=== PATIENT | male | born 1965 | race African-American/Black ===

== ENCOUNTER 2016-05-06 19:22 | Emergency (ER) | payer MEDICARE ==
[~2016-05-06 19:22] MED LIST: CYCL-36 PO; NAPR500 PO
[2016-05-06 19:24] VITALS: BP 177/100; PULSE 85; RESP 14; TEMP 97.6; O2SAT 99
[2016-05-06] MEDS ORDERED: NAPROXEN 500 MG TAB PO ONE (20:45)
--- NOTE | 2016-05-06 20:48 | PD ---
HPI Chief Complaint: Fall Time Seen by Provider: 20:45 Travel History International Travel<30 days: No Contact w/Intl Traveler<30days: No Traveled to known affect area: No History of Present Illness HPI Patient comes in complaining of right shoulder and elbow pain after slip and fall in the shower. Patient denies hitting his head, hitting his neck, or loss of consciousness. Patient describes pain as burning like in nature and is radiating into his neck. Patient denies any numbness or tingling anywhere, being on any blood thinners, nausea, vomiting, or doing anything for this prior coming to the emergency department. Pain is worse to palpation and with certain movement. PFSH Past Medical History Medical History: Denies Significant Hx Hx Anticoagulant Therapy: No Cardiovascular Problems: No Chemotherapy: No Cerebrovascular Accident: No Diabetes: No Diminished Hearing: No Respiratory: No Tetanus Vaccination: < 5 Years Influenza Vaccination: No Past Surgical History Surgical History: No Previous Surgery Social History Alcohol Use: No Tobacco Use: Yes Substance Use: No Allergies-Medications (Allergen,Severity, Reaction): Coded Allergies: No Known Allergies (Unverified , 05/06/16) Reported Meds & Prescriptions Reported Meds & Active Scripts Active Naprosyn (Naproxen) 500 Mg Tab 500 Mg PO Q12HR PRN Review of Systems Except as stated in HPI: all other systems reviewed are Neg Physical Exam Narrative GENERAL: Well-developed, overly nourished, in no acute distress, and non-ill appearing. SKIN: Warm and dry. HEAD: Atraumatic. Normocephalic. EYES: Pupils equal and round. EOMI. No scleral icterus. No injection or drainage. ENT: No nasal bleeding or discharge. Mucous membranes pink and moist. NECK: Trachea midline. Supple. No nuclear rigidity. No tenderness or crepitus or midline of cervical spine. Patient reports tenderness to palpation over right trapezius laterally. CARDIOVASCULAR: Radial pulses 2+, nontender, and equal bilaterally. Capillary refill less than 2 seconds. RESPIRATORY: No accessory muscle use. No respiratory distress. MUSCULOSKELETAL: No obvious deformities. No clubbing. No cyanosis. No edema. Full range of motion. Shoulder:FROM equal BL with passive flexion, extension, Abduction, Adduction, internal/external rotation, and pronation/supination. Sensation equal BL deltoid muscles. Pulses equal BL distal to injury. Capillary refill less than 2 seconds distal to injury and equal BL. FROM distal to injury and equal BL. Strength distal to injury equal BL. NV intact distal to injury equal BL. Flexion and extension of thumb equal BL. Equal strength and movement with abduction/adductions of BL fingers. High School Admissions Representative strength equal BL. Elbow : FROM and strength equal BL with passive flexion, extension, and pronation/supination. No laxity noted with varus and valgus maneuvers. Pulses equal BL distal to injury. Capillary refill less than 2 seconds distal to injury and equal BL. FROM distal to injury and equal BL. Strength distal to injury equal BL. NV intact distal to injury and equal BL. Flexion and extension of thumb equal BL. Equal strength and movement with abduction/ adductions of BL fingers. High School Admissions Representative strength equal BL. Patient reports tenderness to palpation over right posterior elbow. NEUROLOGICAL: Awake and alert. No obvious cranial nerve deficits. Motor grossly within normal limits. Normal speech. PSYCHIATRIC: Appropriate mood and affect; insight and judgment normal. Data Data Last Documented VS Vital Signs Date Time Temp Pulse Resp B/P Pulse Ox O2 Delivery O2 Flow Rate FiO2 05/06/16 20:38 16 05/06/16 19:24 97.6 85 177/100 99 Room Air Orders Elbow, Complete (4 Vws) (05/06/16 ) Shoulder, Complete (>2vws) (05/06/16 ) Naproxen (Naprosyn) (05/06/16 20:45) Ice/Cold Pack (05/06/16 20:45) Splint Or Brace Apply/Monitor (05/06/16 21:43) MDM Medical Decision Making Medical Screen Exam Complete: Yes Emergency Medical Condition: Yes Differential Diagnosis Fracture, strain, contusion, other Narrative Course The patient appears to have suffered a contusion of the elbow. There is no clinical evidence to suspect bony injury by exam. Radiographic examination revealed no fracture seen at this time. The patient has full range of motion on active and passive motions. There is no significant edema. There is no proximal or distal joint effusion. The distal extremity appears neurovascularly intact, without evidence of neurovascular injury nor compartment syndrome. Tendon exam also was intact. The patient was discharged on pain medication instructions and given warnings for vascular compromise. The patient is to follow up with their regular physician or Orthopedics. The patient agrees with plan. Patient appears to suffered a sprain of the right shoulder. There is no clinical evidence for fracture. There is no clinical evidence to suspect bony injury by exam. Radiographic examination revealed no fracture seen at this time. No obvious ligamental injury or internal derangement is noted at this time. The distal extremity appears neurovascularly intact, without evidence of neurovascular injury nor compartment syndrome. Tendon exam also was intact. The patient was discharged on pain medication along with sprain care instructions and given warnings for vascular compromise. The patient is to follow up with Orthopedics. The patient agrees with plan. Patient in no obvious distress upon re-evaluation. All pertinent Radiology result(s) discussed with patient/family. Patient was asked if they wanted to speak to my attending, which the patient did not wish to do at this time. Any questions/concerns in reference to patient diagnosis/condition discussed and clarified prior to patient's discharge. Reinforced sheer importance of close follow up with patient's primary physician or primary care clinic and/or orthopedics. Instructed patient to return to ED immediately, if symptoms return/ worsen. Pt showed understanding of above instructions. Further instructions and recommendations were detailed in discharge paperwork. Pt ambulated without difficulty out of ED at discharge. Diagnosis Primary Impression: Contusion of right elbow, initial encounter Additional Impression: Other sprain of right shoulder joint, initial encounter Referrals: Keagan Jenkins MD Patient Instructions: Contusion in Adults (ED), General Instructions, Shoulder Sprain (ED), Splint Care (ED) Additional Instructions: Follow-up with your primary care physician and/or orthopedics in 3-5 days for reevaluation. Take all medication as prescribed. Wear Good wrap as needed for comfort. Apply ice to affected area 20 minutes per hour as needed for pain. Return to the emergency department if symptoms get worse. Med/Other Pt SpecificInfo: Prescription(s) given Scripts Naproxen (Naprosyn)500 Mg Vhg500 Mg PO Q12HR PRN (PAIN SCALE 1 TO 10) #14 TAB Ref 0 Prov:Gypsy Donnelly MD 05/06/16 Disposition: 01 DISCHARGE HOME Condition: Stable Tayo Herrera May 06, 2016 20:48
--- NOTE | 2016-05-06 21:24 | RADRPT ---
EXAM DATE/TIME: 05/06/2016 21:15 [facility] COMPARISON: No previous studies available for comparison. INDICATIONS : Patient fell in shower and complains of right elbow pain. MEDICAL HISTORY : None. SURGICAL HISTORY : None. ENCOUNTER: Initial ACUITY: 1 day PAIN SCORE: 7/10 LOCATION: Right Elbow FINDINGS: Multiple view examination of the right elbow demonstrates soft tissue swelling without joint effusion , or fracture. The osseous structures are in normal alignment. Spurring posteriorly. Bony mineraliza tion is normal. CONCLUSION: Soft tissue swelling. Cristóbal Anderson MD on May 06, 2016 at 21:21 Board Certified Radiologist. This report was verified electronically.
--- NOTE | 2016-05-06 21:25 | RADRPT ---
EXAM DATE/TIME: 05/06/2016 21:06 [facility] COMPARISON: No previous studies available for comparison. INDICATIONS : Patient fell in shower and complains of right shoulder pain. MEDICAL HISTORY : None. SURGICAL HISTORY : None. ENCOUNTER: Initial ACUITY: 1 day PAIN SCORE: 7/10 LOCATION: Right Shoulder FINDINGS: Multiple view examination of the right shoulder demonstrates no evidence of fracture or dislocation. The glenohumeral and acromioclavicular joints are maintained. There is normal range of motion betwe en internal and external rotation. Bony mineralization is normal. CONCLUSION: No acute fracture. Cristóbal Anderson MD on May 06, 2016 at 21:23 Board Certified Radiologist. This report was verified electronically.
[2016-05-06] MEDS ORDERED: NAPR500 PO (21:46)
== END 2016-05-06 22:07 | disposition home or self-care (01) ==
LOC: NEPB 19:22
DX: S50.01XA Contusion of right elbow, initial encounter (principal); S43.401A Unspecified sprain of right shoulder joint, initial encounter; W18.2XXA Fall in (into) shower or empty bathtub, initial encounter; Y93.E1 Activity, personal bathing and showering; Y92.002 Bathroom of unspecified non-institutional (private) residence as the place of occurrence of the external cause; Z72.0 Tobacco use
CPT/HCPCS: 73030; 73080; 99283

== ENCOUNTER 2016-07-08 21:50 | Emergency (ER) | payer MEDICARE, MEDICAID ==
[~2016-07-08 21:50] MED LIST changes: -CYCL-36 PO
[2016-07-08 21:52] VITALS: BP 186/97; PULSE 97; RESP 14; TEMP 97.8; O2SAT 98
--- NOTE | 2016-07-08 22:37 | PD ---
HPI Chief Complaint: Injury Time Seen by Provider: 22:34 Travel History International Travel<30 days: No Contact w/Intl Traveler<30days: No Traveled to known affect area: No History of Present Illness HPI 51-year-old black male vision impaired presents emergency Department with complaints of right foot pain. He states that he had jammed his right big toe into a door jam of the bathroom this morning. He did not feel significant discomfort initially. He did go to work today. He states that he had laid down this evening and when he went to stand up he was unable to bear airway. He complains of pain across the forefoot into the big toe. He denies any numbness, tingling or weakness. He is requesting a shot for pain PFS Past Medical History Narrative Medical Vision impaired etiology unclear Hx Anticoagulant Therapy: No Cardiovascular Problems: No Chemotherapy: No Cerebrovascular Accident: No Diabetes: No Diminished Hearing: No Respiratory: No Tetanus Vaccination: < 5 Years Past Surgical History Surgical History: No Previous Surgery Social History Alcohol Use: No Tobacco Use: Yes Substance Use: No Allergies-Medications (Allergen,Severity, Reaction): Coded Allergies: No Known Allergies (Unverified , 07/08/16) Reported Meds & Prescriptions Reported Meds & Active Scripts Active Diclofenac Sodium DR (Diclofenac Sodium) 50 Mg Tabdr 50 Mg PO TID Naprosyn (Naproxen) 500 Mg Tab 500 Mg PO Q12HR PRN Review of Systems Except as stated in HPI: all other systems reviewed are Neg Physical Exam Narrative GENERAL: This is a well-nourished, well-developed patient, in no apparent distress. SKIN: No rashes, ecchymoses or lesions. Warm and dry. HEAD: Atraumatic. Normocephalic. EYES: Disconjugate gaze, wandering eyes, no discharge or injection. No scleral icterus. EARS: Clear NOSE: Nasal turbinates appear normal. THROAT: Mucosa pink and moist. Airway patent. NECK: Trachea midline. supple, moves head freely. LUNGS: Clear to auscultation. CV: Regular in rhythm. ABDOMEN: Soft nontender. EXT: No clubbing cyanosis or edema. Examination the right lower extremity reveals pain across the forefoot into the great toe. The skin is intact. There is no skin breakdown. No erythema or ecchymosis. He has intact sensation with good Refill. He has good distal pulses. He complains of pain with weightbearing. No pain in the heel, Achilles, knee or hip. The remaining extremities are unremarkable. Data Data Last Documented VS Vital Signs Date Time Temp Pulse Resp B/P Pulse Ox O2 Delivery O2 Flow Rate FiO2 07/08/16 22:46 Room Air 07/08/16 21:52 97.8 97 14 186/97 98 Orders Foot, Complete ([id number]) (07/08/16 22:33) Ice/Cold Pack (07/08/16 22:33) Splint Or Brace Apply/Monitor (07/08/16 22:33) Crutches (07/08/16 22:33) Ketorolac Inj (Toradol Inj) (07/08/16 22:45) Acetamin-Hydrocod 325-5 Mg ([place] 5-325 (07/08/16 22:45) MDM Medical Decision Making Medical Screen Exam Complete: Yes Emergency Medical Condition: Yes Medical Record Reviewed: Yes Interpretation(s) Right foot: Negative for acute fracture. Differential Diagnosis MDM: High Differential diagnoses: Fracture, sprain, strain, dislocation, contusion, neurovascular injury Narrative Course X-ray of the right foot is negative for trauma. Patient's given Toradol 60 mg IM and Lortab 5 mg by mouth. Icepack, came walker, crutches. This is right foot contusion Diagnosis Primary Impression: Contusion of right foot, initial encounter Patient Instructions: General Instructions, Narcotic given in the ED Departure Forms: Tests/Procedures, Work Release Special Instructions: No work 3 days. Additional Instructions: Rest. Elevation. Ice packs for the next 3 days. Cam Walker and crutches. No weight-bearing and then progress to weight-bearing as tolerated. Medications as directed Follow-up with an orthopedist or your doctor in one week. Return to the ER if any problems Med/Other Pt SpecificInfo: Prescription(s) given Scripts Diclofenac Sodium DR 50 Mg Tabdr50 Mg PO TID #30 TAB Prov:Evelyn Haq MD 07/08/16 Disposition: 01 DISCHARGE HOME Condition: Stable Antwon Horne July 08, 2016 22:37
[2016-07-08] MEDS ORDERED: DICL50TA3 PO (22:38)
[2016-07-08] MEDS ORDERED: KETOROLAC TROMETHAMINE 60 MG/2 ML (IM) VIAL IM ONE (22:45)
[2016-07-08] MEDS ORDERED: ACETAMINOPHEN/HYDROcodone 325 MG/5 MG TAB PO ONE (22:45)
--- NOTE | 2016-07-08 23:08 | RADRPT ---
EXAM DATE/TIME: 07/08/2016 22:56 [facility] COMPARISON: No previous studies available for comparison. INDICATIONS : Right foot pain. MEDICAL HISTORY : None. SURGICAL HISTORY : None. ENCOUNTER: Initial ACUITY: 1 day PAIN SCORE: 10/10 LOCATION: Right foot FINDINGS: Three view examination of the right foot demonstrates no soft tissue swelling, dislocation, or fractu re. The tarsal bones appear intact. The interphalangeal and metatarsophalangeal joints are intact. The calcaneus is intact. Bony mineralization is normal. CONCLUSION: Unremarkable examination of the right foot. Benito Morton Jr., MD on July 08, 2016 at 23:06 Board Certified Radiologist. This report was verified electronically.
== END 2016-07-08 23:50 | disposition home or self-care (01) ==
LOC: NEPK 21:50
DX: S90.31XA Contusion of right foot, initial encounter (principal); W22.09XA Striking against other stationary object, initial encounter; Y92.002 Bathroom of unspecified non-institutional (private) residence as the place of occurrence of the external cause
CPT/HCPCS: 73630; 96372; 99283; E0113; J1885; L2114

== ENCOUNTER 2016-11-26 20:34 | Emergency (ER) | payer MEDICAID, MEDICARE ==
[~2016-11-26] VITALS: Ht 172.7 cm; Wt 115.0 kg
[~2016-11-26 20:34] MED LIST changes: +DICL50TA3 PO
[2016-11-26 20:35] VITALS: BP 142/95; PULSE 77; RESP 15; TEMP 98.7; O2SAT 98
[2016-11-26] MEDS ORDERED: KETOROLAC TROMETHAMINE 60 MG/2 ML (IM) VIAL IM ONE (23:15)
--- NOTE | 2016-11-26 23:22 | RADRPT ---
EXAM DATE/TIME: 11/26/2016 22:58 [facility] COMPARISON: No previous studies available for comparison. INDICATIONS : Pt fell and hit right ankle against cabinet. MEDICAL HISTORY : None. SURGICAL HISTORY : None. ENCOUNTER: Initial ACUITY: 1 day PAIN SCORE: 6/10 LOCATION: Right ankle FINDINGS: Three view exam was performed of the right ankle. The bony structures are in normal alignment. No e vidence of fracture, dislocation. Soft tissue swelling over the lateral malleolus. The ankle mortise is intact. No radiopaque foreign bodies are seen. Bony mineralization is normal. CONCLUSION: 1. Soft tissue swelling at the right ankle. No acute fracture. Antwon العلي MD on November 26, 2016 at 23:20 Board Certified Radiologist. This report was verified electronically.
--- NOTE | 2016-11-26 23:24 | RADRPT ---
EXAM DATE/TIME: 11/26/2016 23:03 [facility] COMPARISON: No previous studies available for comparison. INDICATIONS : Pt fell and hit right knee against cabinet. MEDICAL HISTORY : None. SURGICAL HISTORY : None. ENCOUNTER: Initial ACUITY: 1 day PAIN SCORE: 6/10 LOCATION: Right Knee FINDINGS: Four view examination of the right knee demonstrates no evidence of fracture or dislocation. Bony mi neralization is normal. The articular surfaces are intact. The suprapatellar soft tissues have a no rmal configuration. CONCLUSION: 1. No acute findings. Mild osteoarthritis. Antwon العلي MD on November 26, 2016 at 23:21 Board Certified Radiologist. This report was verified electronically.
--- NOTE | 2016-11-27 00:03 | PD ---
HPI Chief Complaint: Injury Time Seen by Provider: 23:13 Travel History International Travel<30 days: No Contact w/Intl Traveler<30days: No Traveled to known affect area: No History of Present Illness HPI WHILE WALKING ACCIDENTALLY HIT HIS RIGHT KNEE INTO PIECE OF FURNITURE WHICH CAUSED HIM TO FALL, AND HE TWISTED HIS RIGHT ANKLE...NOW C/O RT KNEE AND ANKLE PAIN, NONRAD, 09/07 PFSH Past Medical History Hx Anticoagulant Therapy: No Cardiovascular Problems: No Chemotherapy: No Cerebrovascular Accident: No Diabetes: No Diminished Hearing: No Respiratory: No Immunizations Current: No Social History Alcohol Use: No Tobacco Use: Yes Substance Use: No Allergies-Medications (Allergen,Severity, Reaction): Coded Allergies: No Known Allergies (Unverified , 11/26/16) Reported Meds & Prescriptions Reported Meds & Active Scripts Active Baclofen 10 Mg Tab 10 Mg PO Q8HR PRN Ultram (Tramadol HCl) 50 Mg Tab 50 Mg PO Q4H PRN Diclofenac Sodium DR (Diclofenac Sodium) 50 Mg Tabdr 50 Mg PO TID Naprosyn (Naproxen) 500 Mg Tab 500 Mg PO Q12HR PRN Review of Systems Except as stated in HPI: all other systems reviewed are Neg Musculoskeletal: Positive: Limited ROM, Pain Physical Exam Narrative GENERAL: SKIN: Warm and dry. HEAD: Atraumatic. Normocephalic. EYES: Pupils equal and round. No scleral icterus. No injection or drainage. ENT: No nasal bleeding or discharge. Mucous membranes pink and moist. NECK: Trachea midline. No JVD. CARDIOVASCULAR: Regular rate and rhythm. RESPIRATORY: No accessory muscle use. Clear to auscultation. Breath sounds equal bilaterally. GASTROINTESTINAL: Abdomen soft, non-tender, nondistended. MUSCULOSKELETAL: Extremities without clubbing, cyanosis, or edema. No obvious deformities. BUT TTP ALONG RIGHT LATERAL ANKLE NEUROLOGICAL: Awake and alert. No obvious cranial nerve deficits. Motor grossly within normal limits. Five out of 5 muscle strength in the arms and legs. Normal speech. PSYCHIATRIC: Appropriate mood and affect; insight and judgment normal. Data Data Last Documented VS Vital Signs Date Time Temp Pulse Resp B/P (MAP) Pulse Ox O2 Delivery O2 Flow Rate FiO2 11/27/16 00:46 11/26/16 20:35 98.7 77 15 98 Room Air Orders Orders Ankle, Complete ([id number]) (11/26/16 ) Knee, Complete (4vws) (11/26/16 ) Ice/Cold Pack (11/26/16 22:44) Ketorolac Inj (Toradol Inj) (11/26/16 23:15) MDM Medical Decision Making Medical Screen Exam Complete: Yes Emergency Medical Condition: Yes Medical Record Reviewed: Yes Differential Diagnosis ANKLE SPRAIN V FX V DISLOCATION Narrative Course XRAYS DID NOT SHOW ANY FX OR DISLOCATION NOTED AND PATIENT STABLE..., WILL D/C ON PAIN MEDICATION Diagnosis Primary Impression: RIGHT ANKLE SPRAIN Additional Impression: RIGHT KNEE CONTUSI Patient Instructions: Ankle Sprain (ED), Contusion in Adults (DC), General Instructions Scripts Baclofen (Baclofen) 10 Mg Tab 10 MG PO Q8HR Y for MUSCLE SPASM, #10 TAB 0 Refills Prov: David Dorado MD 11/27/16 Tramadol (Ultram) 50 Mg Tab 50 MG PO Q4H Y for PAIN, #15 TAB 0 Refills Prov: David Dorado MD 11/27/16 Disposition: 01 DISCHARGE HOME Condition: Stable David Dorado MD Nov 27, 2016 00:03
[2016-11-27] MEDS ORDERED: ULTR50TA5 PO (00:40)
[2016-11-27] MEDS ORDERED: BACL10TA PO (00:40)
== END 2016-11-27 01:01 | disposition home or self-care (01) ==
LOC: NEPE 20:34
DX: S93.401A Sprain of unspecified ligament of right ankle, initial encounter (principal); W18.09XA Striking against other object with subsequent fall, initial encounter; Y93.01 Activity, walking, marching and hiking; Y92.009 Unspecified place in unspecified non-institutional (private) residence as the place of occurrence of the external cause; Z72.0 Tobacco use
CPT/HCPCS: 73564; 73610; 96372; 99284; J1885

== ENCOUNTER 2017-05-28 01:12 | Emergency (ER) | payer MEDICARE ==
[~2017-05-28] VITALS: Ht 172.7 cm; Wt 104.5 kg
[~2017-05-28 01:12] MED LIST changes: +BACL10TA PO; +TRAM50 PO
[2017-05-28 01:17] VITALS: BP 171/93; PULSE 75; RESP 16; TEMP 98.4; O2SAT 99
[2017-05-28 01:31] VITALS: BP 159/100; PULSE 74; RESP 18; O2SAT 100
[2017-05-28] MEDS ORDERED: KETOROLAC TROMETHAMINE 60 MG/2 ML (IM) VIAL IM ONE (02:15)
[2017-05-28] MEDS ORDERED: ACETAMINOPHEN/HYDROcodone 325 MG/5 MG TAB PO ONE (02:15)
--- NOTE | 2017-05-28 02:18 | PD ---
HPI Chief Complaint: Injury Time Seen by Provider: 01:24 Travel History International Travel<30 days: No Contact w/Intl Traveler<30days: No Traveled to known affect area: No History of Present Illness HPI Patient is a 51-year-old male who said he was cooking fried chicken his house and grease spilled and he jumped backwards to avoid getting splattered and he slipped and fell and twisted his R ankle and landed on his sacrum and lumbar spine area. He comes in complaining of lateral R ankle pain and lower back pain. Patient is legally blind. Patient says he is having difficulty ambulating due to the pain PFSH Past Medical History Hx Anticoagulant Therapy: No Cardiovascular Problems: No Chemotherapy: No Cerebrovascular Accident: No Diabetes: No Diminished Hearing: No Respiratory: No Immunizations Current: No Tetanus Vaccination: < 5 Years Influenza Vaccination: Yes Social History Alcohol Use: Yes (rarely) Tobacco Use: No Substance Use: No Allergies-Medications (Allergen,Severity, Reaction): Coded Allergies: No Known Allergies (Unverified , 11/26/16) Reported Meds & Prescriptions Reported Meds & Active Scripts Active Tramadol (Tramadol HCl) 50 Mg Tab 50 Mg PO Q6H PRN Ibuprofen 600 Mg Tab 600 Mg PO Q6H PRN Review of Systems Except as stated in HPI: all other systems reviewed are Neg Musculoskeletal: Positive: Myalgias, Arthralgias, Pain (Lower back pain) Physical Exam Narrative GENERAL: SKIN: Warm and dry. HEAD: Atraumatic. Normocephalic. EYES: EOMI ENT: No nasal bleeding or discharge. Mucous membranes pink and moist. NECK: Trachea midline. No JVD. CARDIOVASCULAR: Regular rate and rhythm. RESPIRATORY: No accessory muscle use. Clear to auscultation. Breath sounds equal bilaterally. GASTROINTESTINAL: Abdomen soft, non-tender, nondistended. Hepatic and splenic margins not palpable. Back: Patient has lower back pain in the L5-S1 area midline no step-off felt no swelling no hematoma seen MUSCULOSKELETAL: Extremities right ankle lateral malleolus tenderness and swelling pulses 2+. However there is no edema. No obvious deformities. NEUROLOGICAL: Awake and alert. No obvious cranial nerve deficits. Motor grossly within normal limits. Five out of 5 muscle strength in the arms and legs. Normal speech. PSYCHIATRIC: Appropriate mood and affect; insight and judgment normal. Data Data Last Documented VS Vital Signs Date Time Temp Pulse Resp B/P (MAP) Pulse Ox O2 Delivery O2 Flow Rate FiO2 05/28/17 04:30 05/28/17 04:29 82 18 98 Room Air 05/28/17 01:17 98.4 Orders Orders Ketorolac Inj (Toradol Inj) (05/28/17 02:15) Acetamin-Hydrocod 325-5 Mg ([place] 5-325 (05/28/17 02:15) Ankle, Complete ([id number]) (05/28/17 ) Spine, Lumbar Comp W/Obliq (05/28/17 ) Good Bandage (05/28/17 03:27) Ice / Cold Pack PRN (05/28/17 03:27) Ed Discharge Order (05/28/17 04:22) MDM Medical Decision Making Medical Screen Exam Complete: Yes Emergency Medical Condition: Yes Differential Diagnosis pt has sprain vs strain vs contusion vs fracture vs bone bruise other , Narrative Course xrays of ankle show swelling but no fracture and xray lower back no fracture just possible ankylosis appears , pt denies chronic back pain Diagnosis Primary Impression: Low back strain Qualified Codes: S39.012A - Strain of muscle, fascia and tendon of lower back , initial encounter Additional Impression: Ankle sprain Qualified Codes: S93.409A - Sprain of unspecified ligament of unspecified ankle, initial encounter Patient Instructions: Ankle Sprain (ED), General Instructions Scripts Tramadol (Tramadol) 50 Mg Tab 50 MG PO Q6H Y for PAIN, #10 TAB 0 Refills Prov: Jayy Flores MD 05/28/17 Ibuprofen (Ibuprofen) 600 Mg Tab 600 MG PO Q6H Y for Pain/Inflammation, #20 TAB 0 Refills Prov: Jayy Flores MD 05/28/17 Disposition: 01 DISCHARGE HOME Condition: Good Jayy Flores MD May 28, 2017 02:18
--- NOTE | 2017-05-28 03:06 | RADRPT ---
EXAM DATE/TIME: 05/28/2017 02:36 [facility] COMPARISON: ANKLE RIGHT COMPLETE ([id number]), November 26, 2016, 22:58. INDICATIONS : Patient complains of right ankle pain and swelling status post fall. Unable to bear weight on right a nkle. MEDICAL HISTORY : None. SURGICAL HISTORY : None. ENCOUNTER: Initial ACUITY: 1 day PAIN SCORE: 7/10 LOCATION: Right Ankle FINDINGS: Mild lateral soft tissue swelling. No fracture or subluxation demonstrated. Small heel spur again noted and a large os peroneum, neither significantly changed. CONCLUSION: Lateral soft tissue swelling without evidence of fracture or subluxation. Jas Bermudez MD on May 28, 2017 at 3:03 Board Certified Radiologist. This report was verified electronically.
--- NOTE | 2017-05-28 03:08 | RADRPT ---
EXAM DATE/TIME: 05/28/2017 02:39 [facility] COMPARISON: SPINE LUMBAR LTD (AP & LAT), December 05, 2015, 14:56. INDICATIONS : Patient complains of lower back pain status post fall. MEDICAL HISTORY : None. SURGICAL HISTORY : None. ENCOUNTER: Initial ACUITY: 1 day PAIN SCORE: 5/10 LOCATION: L-Spine FINDINGS: No fracture, subluxation or significant disc space narrowing demonstrated. Mild endplate sclerosis an d bilateral facet osteoarthritis again noted at L5/S1. 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 CONCLUSION: No evidence of fracture or subluxation of the lumbar spine. Chronic findings as above. Jas Bermudez MD on May 28, 2017 at 3:05 Board Certified Radiologist. This report was verified electronically.
[2017-05-28] MEDS ORDERED: TRAM50TA PO (03:55)
[2017-05-28] MEDS ORDERED: IBUP-232 PO (03:55)
[2017-05-28 04:29] VITALS: BP 146/92; PULSE 82; RESP 18; O2SAT 98
== END 2017-05-28 04:35 | disposition home or self-care (01) ==
LOC: NEPC 01:12
DX: S39.012A Strain of muscle, fascia and tendon of lower back, initial encounter (principal); S93.401A Sprain of unspecified ligament of right ankle, initial encounter; W01.0XXA Fall on same level from slipping, tripping and stumbling without subsequent striking against object, initial encounter; Y93.G3 Activity, cooking and baking; Y92.009 Unspecified place in unspecified non-institutional (private) residence as the place of occurrence of the external cause
CPT/HCPCS: 72110; 73610; 96372; 99283; J1885